=== PATIENT | male | born 1995 | race African-American/Black ===

== ENCOUNTER 2023-08-01 15:08 | Inpatient (IN) | payer SELFPAY ==
[2023-08-01 15:09] VITALS: BP 142/92; PULSE 109; RESP 22; TEMP 36.1; O2SAT 98; BMI 55.3
[2023-08-01 15:30] VITALS: PULSE 107; RESP 16; O2SAT 96
[2023-08-01 16:09] VITALS: PULSE 106; RESP 16; O2SAT 98
[2023-08-01 16:19] LABS: Absolute Lymphocyte Count 2.55 X10^3/uL (0.83-4.51); Absolute Neutrophil Count 6.1 X10^3/uL (2.0-7.7); Basophil# 0.06 X10^3/uL; Basophil% 0.6 % (0-1); Eosinophil# 0.35 X10^3/uL; Eosinophils% 3.6 % (0-5); Hematocrit 44.5 % (40-54); Hemoglobin 13.6 g/dL (13.0-16.5); Lymphocyte # 2.55 X10^3/ul (0.83-4.51); Lymphocyte % 26.1 % (19-41); Mean Corp Hgb Conc 30.6 g/dL (32-36); Mean Corpuscular Hgb 25.5 pg (27.0-32.0); Mean Corpuscular Volume 83.3 fL (80-94); Mean Platelet Vol. 10.3 fl (6.2-12.0); Monocyte# 0.67 X10^3/uL; Monocyte% 6.9 % (0-10); NRBC Flagged by Analyzer 0 % (0-5); Neutrophil # 6.11 X10^3/uL (2.7-7.7); Neutrophil % 62.5 % (47-70); Platelet Count 336 K/mm3 (150-450); RBC Distribution Width CV 16.4 % (11.6-14.6); RBC Distribution Width SD 48.7 fl (35.1-43.9); Red Blood Count 5.34 M/mm3 (4.6-6.2); White Blood Count 9.8 K/mm3 (4.4-11.0)
[2023-08-01 16:24] LABS: Amphetamine Urine VISTA NEGATIVE (<1000 ng/mL); Barbiturate Urine VISTA NEGATIVE (< 200 ng/mL); Benzodiazepine Urine VISTA NEGATIVE (< 200 ng/mL); Cocaine Urine VISTA NEGATIVE (< 300 ng/mL); Ecstacy Urine VISTA NEGATIVE (< 500 ng/mL); Methadone Urine VISTA NEGATIVE (< 300 ng/mL); PCP Urine VISTA NEGATIVE (< 25 ng/mL); THC Urine VISTA NEGATIVE (< 50 ng/mL); Vista UDS pH Range 5
--- NOTE | 2023-08-01 16:25 | EX.ED.SAOD ---
HPI History of Present Illness Chief Complaint: Substance Abuse Narrative Narrative: 27-year-old male presenting for detox. He states he drinks 2 large bottles of vodka daily. Has been doing this for about 6 months. Also admits to using cocaine. Patient states he feels shaky and jittery. Last drink was 2 AM. Patient states he does withdrawal when he tries to quit alcohol. He states he also will have a withdrawal seizure. Patient reports that he is never formally detoxed as an inpatient. PFSH PFSH Medical History no medical history Home Medications ?Medication ?Instructions ?Recorded ?Last Taken ?Type NK 08/01/23 Unknown History Allergy/AdvReac Type Severity Reaction Status Date / Time No Known Allergies Allergy Verified 08/01/23 15:09 Social History Smoking Status: Current every day smoker tobacco type: cigarettes ROS ROS ED Constitutional Constitutional ED: Denies chills, fever(s) or sweats Eyes Eyes: Denies blurry vision or change in vision ENT ENT ED: Denies ear pain or sore throat Cardiovascular Cardiovascular: Denies chest pain, palpitations or racing heartbeat Respiratory/Chest Respiratory/Chest: Denies cough, dyspnea or sputum Gastrointestinal Gastrointestinal: Denies abdominal pain, constipation, diarrhea, nausea or vomiting Genitourinary Genitourinary ED: Denies dysuria, hematuria or urinary frequency Musculoskeletal Musculoskeletal: Denies arthralgias, myalgias or neck pain Integumentary Denies abscess, Abrasions or rash Neurologic Neurologic: Denies headache(s), paresthesias or weakness Psychiatric Psychiatric: Denies anxiety, depression, suicidal ideation or suicidal thoughts Endocrine Endocrinology: Denies polydipsia or polyuria EXAM Physical Exam Const Vital Signs: 08/01/23 15:09 08/01/23 15:30 08/01/23 16:09 Temperature 97 F L Temperature Source Temporal Pulse Rate 109 H 107 H 106 H Respiratory Rate 22 H 16 16 Blood Pressure 142/92 H Blood Pressure Mean 108 Pulse Ox 98 96 98 Oxygen Delivery Method Room Air Room Air Room Air Positive well nourished General Appearance ED: NAD; Negative for pallor HEENT Reports moist mucous membranes Eyes PERRL and EOMs intact bilaterally Resp normal respiratory effort and clear to auscultation bilaterally Cardio regular rhythm Rate: tachycardic Neuro oriented x3 and CN's II-XII intact bilaterally Sensorium / Orientation: alert Motor Exam: strength 5/5 throughout Psych mental status grossly normal Skin General Skin Exam: Negative for jaundice or pallor MDM MDM MDM Narrative Medical decision making narrative: Patient presenting for alcohol detox. He has noted to be a little hypertensive and tachycardic. He states he feels shaky. He reports a history of withdrawal seizures. Screening lab work will be obtained. Patient given a nicotine patch and 2 mg of Ativan IV. CBC shows normal white blood cell count at 9.8. Hemoglobin 13.6. Platelets are normal 336. Renal function and electrolyte within normal limits. LFTs and lipase unremarkable. Urine drug screen is negative. EtOH negative. Will discuss with the hospitalist for admission. Impression: 1. EtOH abuse 2. Presentation for EtOH detox Lab Data Attestation: I reviewed the patient's lab results. Labs: Laboratory Results - last 24 hr 08/01/23 08/01/23 15:45 16:10 WBC 9.8 RBC 5.34 Hgb 13.6 Hct 44.5 MCV 83.3 MCH 25.5 L MCHC 30.6 L RDW Std Deviation 48.7 H RDW Coeff of Keila 16.4 H Plt Count 336 MPV 10.3 Immature Gran % (Auto) 0.300 Neut % (Auto) 62.5 Lymph % (Auto) 26.1 Rush % (Auto) 6.9 Eos % (Auto) 3.6 Baso % (Auto) 0.6 Absolute Neuts (auto) 6.1 Absolute Lymphs (auto) 2.55 Nucleated RBC % 0 Sodium 140 Potassium 3.7 Chloride 106 Carbon Dioxide 28.0 Anion Gap 6 BUN 15 Creatinine 1.12 Estim Creat Clear Calc 180.22 Est GFR (MDRD) Af Amer 101 Est GFR (MDRD) Non-Af 84 BUN/Creatinine Ratio 13.4 Glucose 102 Calcium 9.0 Total Bilirubin 0.20 AST 22 ALT 38 Alkaline Phosphatase 80 Total Protein 7.8 Albumin 3.4 Globulin 4.4 H Albumin/Globulin Ratio 0.8 L Lipase 27 Urine Opiates Screen NEGATIVE Urine Methadone Screen NEGATIVE Ur Barbiturates Screen NEGATIVE Ur Phencyclidine Scrn NEGATIVE Ur Amphetamines Screen NEGATIVE MDMA (Ecstasy) Screen NEGATIVE U Benzodiazepines Scrn NEGATIVE Urine Cocaine Screen NEGATIVE U Cannabinoids Screen NEGATIVE Ur Drug Screen Comment Ethyl Alcohol < 3.0 Discharge Plan Triage Chief Complaint: Substance Abuse ED Provider: Tc Garrett Dx/Rx/DC Orders Prescriptions: No Action NK Primary Care Provider: Care Physician,No Primary Referrals: Care Physician,No Primary [Primary Care Provider] - Print Language: Danish
[2023-08-01 16:32] LABS: Alcohol, Blood (Medical)-Serum < 3.0 mg/dL
[2023-08-01 16:39] LABS: ALB/GLOB Ratio 0.8 RATIO (0.9-2.4); AST(SGOT) 22 U/L (15-37); Alanine Aminotransfer ALT/SGPT 38 U/L (16-61); Albumin, Serum 3.4 g/dL (3.2-5.0); Alkaline Phosphatase 80 U/L (45-117); Anion Gap 6 (5-15); BUN 15 mg/dL (7-18); BUN/Creat Ratio 13.4 RATIO (10-20); Chloride 106 mmol/L (98-107); Creatinine, Serum 1.12 mg/dL (0.70-1.30); EST Glomerular Filtration Rate 84 mL/min (>60); Est Glom Filt Rate - Afr Amer 101 mL/min (>60); Estimated Creatinine Clearance 180.22 ml/min; Globulin 4.4 g/dL (2.2-4.2); Glucose 102 mg/dL (74-106); Lipase 27 U/L (13-75); Potassium 3.7 mmol/L (3.5-5.1); Protein, Total 7.8 g/dL (6.4-8.2); Sodium Level 140 mmol/L (136-145)
[2023-08-01] MEDS: LORazepam 2 MG/ML Syringe IV (16:40)
[2023-08-01 17:12] VITALS: BP 142/92; PULSE 106; RESP 16; TEMP 36.1; O2SAT 98
--- NOTE | 2023-08-01 17:20 | NURSING ---
MED SURG KORAM ETOH DETOX
--- NOTE | 2023-08-01 17:45 | HP.PCM.HOS_ITS ---
[facility] - General General Date of Admission: 08/01/23 Date of Service: 08/01/23 HPI Narrative TAL RM, is a 27 M with a past medical history which includes chronic alcohol abuse and cocaine dependence who presents via the ED on 08/01/2023 for acute alcohol withdrawal. Patient drinks about 2 bottles of vodka daily and his last drink was on the morning of admission. He has never gone through withdrawal before. He denies any fever or chills, palpitations, dizziness, denies any heart racing, nausea or vomiting. He also admits to cocaine use and states his last use was the day before admission. Usually snorts it. He denies any other drug use. Review of systems otherwise negative. Vitals in the ED where blood pressure 142/92, pulse rate of 106, respiratory rate of 16 and temperature of 97 Fahrenheit. He was saturating at 98% on room air. CBC was unremarkable. CMP was also unremarkable and serum alcohol level was less than 3. Urine tox was also negative. He has been admitted to manage for acute alcohol withdrawal. [facility] Medical History no medical history Home Medications ?Medication ?Instructions ?Recorded ?Last Taken ?Type NK 08/01/23 Unknown History Allergy/AdvReac Type Severity Reaction Status Date / Time No Known Allergies Allergy Verified 08/01/23 15:09 Social History Smoking Status: Current every day smoker tobacco type: cigarettes ROS Constitutional Constitutional: Denies anorexia, chills, fatigue, fever(s), malaise or weakness Eyes Eyes: Denies change in vision ENT HEENT: Denies dysphagia or headache(s) Cardiovascular Cardiovascular: Denies chest pain, dyspnea on exertion, edema, orthopnea, palpitations, paroxysmal nocturnal dyspnea, rapid heart rate or syncope Respiratory/Chest Respiratory/Chest: Denies cough, dyspnea, shortness of breath at rest or shortness of breath with exertion Gastrointestinal Gastrointestinal: Denies abdominal pain, diarrhea, dyspepsia, nausea or vomiting Genitourinary Genitourinary: Denies burning urination Musculoskeletal Musculoskeletal: Denies arthralgias Neurologic Neurologic: Denies confusion, dizziness, focal weakness, headache(s), numbness, seizure-like activity, seizures or syncope Psychiatric Psychiatric: Denies anxiety or depression Vital Signs Vital Signs Vital Signs: 08/01/23 15:09 08/01/23 15:30 08/01/23 16:09 Temperature 97 F L Temperature Source Temporal Pulse Rate 109 H 107 H 106 H Respiratory Rate 22 H 16 16 Blood Pressure 142/92 H Blood Pressure Mean 108 Pulse Ox 98 96 98 Oxygen Delivery Method Room Air Room Air Room Air 08/01/23 17:12 Temperature 97 F L Temperature Source Pulse Rate 106 H Respiratory Rate 16 Blood Pressure 142/92 H Blood Pressure Mean 108 Pulse Ox 98 Oxygen Delivery Method Weight Weight: 430 lb 12.532 oz Body Mass Index (BMI) 55.3 Physical Exam Const alert, oriented x3 and no apparent distress Constitutional Narrative: Super morbid obesity HEENT normocephalic, head/scalp atraumatic, hearing grossly normal bilaterally, moist oral mucous membranes and oropharynx normal Mouth: oral and palatal mucosa normal Eyes PERRL, EOMs intact bilaterally and conjunctivae normal Neck no lymphadenopathy and supple Resp normal respiratory effort, no retractions, no use of accessory muscles and clear to auscultation bilaterally Cardio regular rate, regular rhythm, S1 normal heart sound, S2 normal heart sound and no murmurs GI normal to inspection, nondistended, normoactive bowel sounds, soft to palpation, non-tender and non-distended Extremity normal to inspection, full ROM and no clubbing, cyanosis or edema Neuro oriented x3, CN's II-XII intact bilaterally, moves all extremities and no focal motor deficits Motor Exam: strength 5/5 throughout Psych affect normal Results Lab / Micro Data 08/01/23 16:10 08/01/23 16:10 Labs: Laboratory Results - last 24 hr 08/01/23 15:45: Urine Opiates Screen NEGATIVE, Urine Methadone Screen NEGATIVE, Ur Barbiturates Screen NEGATIVE, Ur Phencyclidine Scrn NEGATIVE, Ur Amphetamines Screen NEGATIVE, MDMA (Ecstasy) Screen NEGATIVE, U Benzodiazepines Scrn NEGATIVE, Urine Cocaine Screen NEGATIVE, U Cannabinoids Screen NEGATIVE, Ur Drug Screen Comment 08/01/23 16:10: WBC 9.8, RBC 5.34, Hgb 13.6, Hct 44.5, MCV 83.3, MCH 25.5 L, M CHC 30.6 L, RDW Std Deviation 48.7 H, RDW Coeff of Keila 16.4 H, Plt Count 336, MPV 10.3, Immature Gran % (Auto) 0.300, Neut % (Auto) 62.5, Lymph % (Auto) 26.1, [place] % (Auto) 6.9, Eos % (Auto) 3.6, Baso % (Auto) 0.6, Absolute Neuts (auto) 6.1, Absolute Lymphs (auto) 2.55, Nucleated RBC % 0, Sodium 140, Potassium 3.7, Chloride 106, Carbon Dioxide 28.0, Anion Gap 6, BUN 15, Creatinine 1.12, Estim Creat Clear Calc 180.22, Est GFR (MDRD) Af Amer 101, Est GFR (MDRD) Non-Af 84, BUN/Creatinine Ratio 13.4, Glucose 102, Calcium 9.0, Total Bilirubin 0.20, AST 22, ALT 38, Alkaline Phosphatase 80, Total Protein 7.8, Albumin 3.4, Globulin 4.4 H, Albumin/Globulin Ratio 0.8 L, Lipase 27, Ethyl Alcohol < 3.0 Assessment & Plan Assessment/Plan (1) Alcohol withdrawal: PLAN: Plan #Acute alcohol withdrawal * Ad[facility] to [facility]. Patient drinks about 2 bottles of vodka daily and his last drink was the morning of admission * Serum alcohol level is less than 3. Started on alcohol withdrawal protocol with phenobarbital. * . Thiamine, p.o. folic acid and p.o. Multi-Katie. * Adjunctive meds for symptomatic relief. * Monitor CIWA score * #Nicotine dependence: Counseled to quit. Nicotine patch 21 mg daily. #Elevated blood pressure: * Blood pressure was 142/92. * Patient states he does have a history of high blood pressure but does not take any medication for it. * Will monitor blood pressure and if remains elevated,will start PO meds. * #Cocaine abuse: patient admits to using cocaine. Urine tox is negative. Counseled to quit. DVT prophylaxis: low risk, encourage to ambulate. Charges/Coding Visit Charges Inpatient E&M: 70793 Init Hosp L3
[2023-08-01 18:48] VITALS: BMI 56.1
[2023-08-01 20:03] VITALS: BP 138/91; PULSE 92; RESP 18; TEMP 36.6; O2SAT 95
[2023-08-01] MEDS: Phenobarbital 32.4 MG Tablet 64.8 MG PO (20:20)
[2023-08-01] MEDS: Acetaminophen 325 MG Tablet 650 MG PO (20:26)
[2023-08-02] VITALS (7 sets, daily range): BP systolic 142–170; BP diastolic 59–91; PULSE 85–98; RESP 16–18; TEMP 36.2–36.9; O2SAT 97–99
[2023-08-02] MEDS: Phenobarbital 32.4 MG Tablet 64.8 MG PO ×6 (00:17→20:17)
--- NOTE | 2023-08-02 08:58 | PN.HOSP_ITS ---
Subjective Subjective No issues overnight, CIWA score 3 Objective Data Objective Data Vital Signs: Vital Signs Temp Pulse Resp BP Pulse Ox O2 Del Method 98.1 F 86 16 146/60 H 97 Room Air 08/02/23 04:00 08/02/23 04:00 08/02/23 04:00 08/02/23 04:00 08/02/23 04:00 08/02/23 04:00 Oxygen Delivery Method Room Air Weight: 425 lb 8 oz Body Mass Index (BMI) 56.1 Lab / Micro Data 08/01/23 16:10 08/01/23 16:10 Labs: Laboratory Results - last 24 hr 08/01/23 15:45: Urine Opiates Screen NEGATIVE, Urine Methadone Screen NEGATIVE, Ur Barbiturates Screen NEGATIVE, Ur Phencyclidine Scrn NEGATIVE, Ur Amphetamines Screen NEGATIVE, MDMA (Ecstasy) Screen NEGATIVE, U Benzodiazepines Scrn NEGATIVE, Urine Cocaine Screen NEGATIVE, U Cannabinoids Screen NEGATIVE, Ur Drug Screen Comment 08/01/23 16:10: WBC 9.8, RBC 5.34, Hgb 13.6, Hct 44.5, MCV 83.3, MCH 25.5 L, M CHC 30.6 L, RDW Std Deviation 48.7 H, RDW Coeff of Keila 16.4 H, Plt Count 336, MPV 10.3, Immature Gran % (Auto) 0.300, Neut % (Auto) 62.5, Lymph % (Auto) 26.1, [place] % (Auto) 6.9, Eos % (Auto) 3.6, Baso % (Auto) 0.6, Absolute Neuts (auto) 6.1, Absolute Lymphs (auto) 2.55, Nucleated RBC % 0, Sodium 140, Potassium 3.7, Chloride 106, Carbon Dioxide 28.0, Anion Gap 6, BUN 15, Creatinine 1.12, Estim Creat Clear Calc 180.22, Est GFR (MDRD) Af Amer 101, Est GFR (MDRD) Non-Af 84, BUN/Creatinine Ratio 13.4, Glucose 102, Calcium 9.0, Total Bilirubin 0.20, AST 22, ALT 38, Alkaline Phosphatase 80, Total Protein 7.8, Albumin 3.4, Globulin 4.4 H, Albumin/Globulin Ratio 0.8 L, Lipase 27, Ethyl Alcohol < 3.0 Physical Exam Narrative General: Alert, Oriented x3, Cooperative, No apparent distress, morbidly obese HEENT: Atraumatic, PERRLA, EOMI, Normocephalic Oral: Moist Mucosa Neck: Supple, No JVD Lungs: Clear to auscultation, Normal air movement, No rhonchi, No wheeze, No rales Cardiovascular: Regular rate, Regular Rhythm, Normal S1, Normal S2, No murmurs Abdomen: Soft, Non Tender, Non-Distended, No Hepato-splenomegaly Extremities: No edema, Capillary Refill Less than 3 Seconds Skin: No rashes, No breakdown Musculoskeletal: No Tenderness to Palpation of Joints or Extremities Neurological: No focal neurological deficits, Motor Exam 5/5 strength throughout, Sensory exam intact to light touch and pain Psych/Mental Status: Normal Affect, Appropriate Assessment & Plan Assessment/Plan (1) Alcohol withdrawal: PLAN: Plan 1. Acute alcohol withdrawal/tobacco abuse ? Continue with the alcohol withdrawal protocol ? Will have him follow-up with 180 to develop an outpatient plan ? Discussed tobacco cessation continue with the nicotine patch ? Does endorse cocaine use so his test came back negative, he was counseled to quit by the admitting physician DVT: Ambulation Charges/Coding Visit Charges Inpatient E&M: 88872 Subs Hosp L2
[2023-08-02] MEDS: Thiamine Hydrochloride 100 MG Tablet PO (09:54)
[2023-08-02] MEDS: Folic Acid 1 MG Tablet PO (09:54)
--- NOTE | 2023-08-02 12:34 | NURSING ---
Pt wanted this nurse to call his mother Kym [phone] and ask if she has heard from the job and there are papers in the car. Mother answer the phone I communicated what the patient wanted.
--- NOTE | 2023-08-02 12:45 | NURSING ---
I was told by Curly that patient had old blood on his blanket and table. I told her when i was in the room earlier I did not see blood anywhere. I went into the room and assess the patient from head to toe. Removed blankets did not see any thing in the blanket just old blood. Did not see any blood on the body or mouth. Patient did have a IV in LAC that was no longer there and the nicotine patch stuck on the blanket.
--- NOTE | 2023-08-02 14:23 | CHAPLAIN ---
Type of Pastoral Visit _x__ Initial Visit ___ Follow-up Visit ___ On-call Visit ___ General Patient Visit ___ Spiritual Assessment ___ Family Conference ___ Bereavement ___ Rapid Response ___ Code Blue ___ Other (describe below) Pastoral Care Referral From _x__ Patient ___ Family ___ Nurse ___ Physician ___ Chicken Raiser ___ Hand Paster ___ Other (describe below) Sacrament/Intervention ___ Active listening ___ Anointing ___ Rastafarian ___ Bereavement ___ Communion ___ Janiya exploration ___ ___ Life review ___ Prayer ___ Reconciliation ___ Sacrament of Sick _x__ Supportive presence ___ Wedding ___ Other (describe below) Pastoral Comments waited as patient was on the phone; when pt completed call he denied any needs, saying that he was fine and doing okay; pt asked this clinic physician director to tell nurse to come into room; RN was on her way into room to take the phone already; pt again says that he does not need anything
--- NOTE | 2023-08-02 14:54 | CASEMGMT ---
Social Work- completed SDOH and provided resources for housing, people to people, community action, transportation, and WHIRE card. Pt has medicaid application started. Pt has planned d/c to residential treatment for BERNARDO. Pt states that he moved to [place] 2 weeks ago from [facility]. Pt states that his parents moved here in February from [place] for a job and live in housing that does not allow people with a felony conviction to reside there. Pt states that he has a felonious assault charge on his record. Pt states that his relationship with his parents is loving and healthy. Pt states that he speaks with them regularly. Pt states that he has two jobs; one at [employer] and one at [employer]. Pt states that he gets 50% off food there and also utilizes taoist meals. Pt states that he sleeps behind a taoist and finds it difficult to actually sleep due to being worried about police and other homeless people. Pt states that he walks everywhere. Pt states that he has money for a $450-$500/month one bedroom apartment and just needs help finding housing. Pt states that he wants to make a change with his substance use and housing situation. Pt was appreciative of resources and engaged freely in conversation, sitting up in bed and making good eye contact. Pt was pleasant and cooperative in demeanor. HAYDE Pérez
--- NOTE | 2023-08-02 18:04 | NURSING ---
Pt wanted nurse to update mother on his plans of going [facility]. He wanted me to let her know that he would be gone for 30 days and it one and half hours away from here, and if she thought it was a good ideal for him to go. I told mother and she stated he will be okay only 30 days and tell him to give me a call when he gets there.
[2023-08-02] MEDS: Ondansetron 8 MG Tablet PO (20:17)
[2023-08-02] MEDS: Gabapentin 300 MG Capsule PO (20:18)
[2023-08-02] MEDS: Acetaminophen 325 MG Tablet 650 MG PO (20:18)
[2023-08-03] MEDS: Phenobarbital 32.4 MG Tablet 64.8 MG PO ×4 (00:24→11:41)
[2023-08-03 04:00] VITALS: BP 123/65; PULSE 83; RESP 18; TEMP 36.4; O2SAT 98
[2023-08-03] MEDS: Ondansetron 8 MG Tablet PO ×2 (04:06→12:03)
[2023-08-03] MEDS: Acetaminophen 325 MG Tablet 650 MG PO ×2 (04:06→10:59)
[2023-08-03 07:44] VITALS: BP 117/73; PULSE 76; RESP 20; TEMP 36.6; O2SAT 98
[2023-08-03] MEDS: Thiamine Hydrochloride 100 MG Tablet PO (07:48)
[2023-08-03] MEDS: Folic Acid 1 MG Tablet PO (07:48)
--- NOTE | 2023-08-03 09:32 | PCM.PN.HOSP ---
Subjective Subjective No issues overnight, CIWA score 6 Objective Data Objective Data Vital Signs: Vital Signs Temp Pulse Resp BP Pulse Ox O2 Del Method 97.9 F 76 20 H 117/73 98 Room Air 08/03/23 07:44 08/03/23 07:44 08/03/23 07:44 08/03/23 07:44 08/03/23 07:44 08/03/23 07:44 Oxygen Delivery Method Room Air Weight: 425 lb 8 oz Body Mass Index (BMI) 56.1 Intake & Output: Intake and Output for Last 24 Hours 08/02/23 08/03/23 08/04/23 03:59 03:59 03:59 Intake Total 1880 / 1880 500 / 500 Balance 1880 / 1880 500 / 500 Lab / Micro Data 08/01/23 16:10 08/01/23 16:10 Physical Exam Narrative General: Alert, Oriented x3, Cooperative, No apparent distress, morbidly obese HEENT: Atraumatic, PERRLA, EOMI, Normocephalic Oral: Moist Mucosa Neck: Supple, No JVD Lungs: Clear to auscultation, Normal air movement, No rhonchi, No wheeze, No rales Cardiovascular: Regular rate, Regular Rhythm, Normal S1, Normal S2, No murmurs Abdomen: Soft, Non Tender, Non-Distended, No Hepato-splenomegaly Extremities: No edema, Capillary Refill Less than 3 Seconds Skin: No rashes, No breakdown Musculoskeletal: No Tenderness to Palpation of Joints or Extremities Neurological: No focal neurological deficits, Motor Exam 5/5 strength throughout, Sensory exam intact to light touch and pain Psych/Mental Status: Normal Affect, Appropriate Assessment & Plan Assessment/Plan (1) Alcohol withdrawal: PLAN: Plan 1. Acute alcohol withdrawal/tobacco abuse ? Continue with the alcohol withdrawal protocol ?Plan to discharge for residential treatment to ? Discussed tobacco cessation continue with the nicotine patch ? Does endorse cocaine use so his test came back negative, he was counseled to quit by the admitting physician DVT: Ambulation Charges/Coding Visit Charges Inpatient E&M: 27674 Subs Hosp L2
--- NOTE | 2023-08-03 09:50 | CASEMGMT ---
Social Work As per RN and LYNDA notes, pt going to [facility] today, and is to be picked up. SW called [facility] [employer], spoke w/Angélica who is covering today. She states pt is to go to [facility] today, does not know what time. She will be here later this morning and can follow up, but did give SW the phone number. SW spoke w/pt, he confirms he is to go to [facility] but does not know a time. LYNDA called [facility](([phone]), left a message. LYNDA updated rn charge, and will speak w/Angélica when she is here. MATTY Villareal
[2023-08-03 10:48] VITALS: PULSE 100
[2023-08-03] MEDS: Dicyclomine 10 MG Capsule 20 MG PO (11:00)
--- NOTE | 2023-08-03 11:01 | NURSING ---
rated headache and low abd pain at 8/10 and stated threw up about 1 hour ago. He requested cookies and is eating cookies now.
--- NOTE | 2023-08-03 11:32 | ADDICTION ---
ASAM, MSE, AUDIT, DUDIT assessments completed and placed in pt's chart. PT plans to f/u with [facility] and transportation will be provided 08/03/23 at 12PM.
--- NOTE | 2023-08-03 11:33 | DCINST_ITS ---
Discharge Instructions Diet Discharge Diet: Low fat / Low cholesterol Activity Discharge Activity: Return to Normal Activity Dressing / Incision Call your doctor if you observe: Fever of 101 or Higher, Shortness of breath, Dizziness, Fainting spells, Swelling in the ankles, Chest pain and Increased palpitations (irregular heartbeat) Follow Up Care Test Results: Test results from this visit will be discussed in further detail at your follow- up appointment, if applicable. Discharge Plan Admission Admit Date/Time: 08/01/23 17:54 Attending Provider: Daniel Richards Primary Care Provider: Care Physician,Windy Primary Consulting Providers: Nathaly Luo Discharge Orders/Prescriptions Prescriptions: New amlodipine [Norvasc] 5 mg tablet 5 mg PO DAILY Qty: 30 0RF Referrals / Follow Up: Care Physician,No Primary [Primary Care Provider] - Disposition Disposition (needs filled in before D/C Order can be placed): Inpatient Rehab Unit/Facility
[2023-08-03 13:08] VITALS: BP 157/72; PULSE 87; RESP 18; TEMP 36.5; O2SAT 95
--- NOTE | 2023-08-03 14:38 | DS.PCM_ITS ---
Providers Date of Admission: 08/01/23 Primary Care Physician: No Primary Care Phys Reason For Visit: ETOH DETOX Diagnosis Discharge Diagnosis (1) Alcohol withdrawal: Status: Acute Code(s): F10.939 - Alcohol use, unspecified with withdrawal, unspecified Plan 1. Acute alcohol withdrawal/tobacco abuse ? Continue with the alcohol withdrawal protocol ?Plan to discharge [facility] residential [facility] ? Discussed tobacco cessation continue with the nicotine patch ? Does endorse cocaine use so his test came back negative, he was counseled to quit by the admitting physician DVT: Ambulation Medications at Discharge Home Medications amlodipine 5 mg tablet (Norvasc) 5 mg PO DAILY #30 tabs 08/03/23 Hospital Course Operations None Procedures None Summary of Care Provided Minutes Spent on Discharge: 35 Hospital Course: Per HPI: TAL RM, is a 27 M with a past medical history which includes chronic alcohol abuse and cocaine dependence who presents via the ED on 08/01/2023 for acute alcohol withdrawal. Patient drinks about 2 bottles of vodka daily and his last drink was on the morning of admission. He has never gone through withdrawal before. He denies any fever or chills, palpitations, dizziness, denies any heart racing, nausea or vomiting. He also admits to cocaine use and states his last use was the day before admission. Usually snorts it. He denies any other drug use. Review of systems otherwise negative. Vitals in the ED where blood pressure 142/92, pulse rate of 106, respiratory rate of 16 and temperature of 97 Fahrenheit. He was saturating at 98% on room air. CBC was unremarkable. CMP was also unremarkable and serum alcohol level was less than 3. Urine tox was also negative. He has been admitted to manage for acute alcohol withdrawal. Hospital Course: 1. Alcohol withdrawal?27-year-old male presents to the hospital requesting detox from alcohol. He does also use cocaine though urine drug screen came back negative. Says he drinks about 2 bottles of vodka daily and his last drink was on the morning of admission 08/01/2023. This morning on evaluation, he was sleeping comfortably without any issues and then when I was notified that [facility] was planning on picking him up today he was reevaluated. At that time he said that he was a little bit dizzy as he had just woken up. He denied any other symptomatology at that time and then I was notified that he was having abdominal pain but also wanted to eat. He did not have any tenderness to palpation of his abdomen. I discussed with him the plan for discharge to [facility] and he expressed understanding of the risk benefits of going for rehab. I also discussed the case with the [employer] front office representative who is here in the hospital who also felt it best to get him to [facility] for residential treatment, especially since they are able to continue his detox protocol in their facility. Because his blood pressures were remaining a little bit elevated he was started on Norvasc 5 mg p.o. daily that he can continue at residential treatment. Physical Exam Narrative General: Alert, Oriented x3, Cooperative, No apparent distress, morbidly obese HEENT: Atraumatic, PERRLA, EOMI, Normocephalic Oral: Moist Mucosa Neck: Supple, No JVD Lungs: Clear to auscultation, Normal air movement, No rhonchi, No wheeze, No rales Cardiovascular: Regular rate, Regular Rhythm, Normal S1, Normal S2, No murmurs Abdomen: Soft, Non Tender, Non-Distended, No Hepato-splenomegaly Extremities: No edema, Capillary Refill Less than 3 Seconds Skin: No rashes, No breakdown Musculoskeletal: No Tenderness to Palpation of Joints or Extremities Neurological: No focal neurological deficits, Motor Exam 5/5 strength throughout, Sensory exam intact to light touch and pain Psych/Mental Status: Normal Affect, Appropriate Weight / BMI Weight Weight: 425 lb 8 oz Body Mass Index (BMI) 56.1 ABG / Lab / Microbiology Data 08/01/23 16:10 08/01/23 16:10 D/C Instructions Discharge Diet: Low fat / Low cholesterol Call your doctor if you observe: Fever of 101 or Higher, Shortness of breath, Dizziness, Fainting spells, Swelling in the ankles, Chest pain and Increased palpitations (irregular heartbeat) Meaningful Use Info Meaningful Use Meaningful Use Diagnoses (Choose all that apply): None applicable Ischemic Stroke Statin Dosing Therapy Reference: STATIN DOSE THERAPY REFERENCE: * Patients > 75 years receive moderate or high dose statin therapy. * Patients 75 years or YOUNGER should receive HIGH intensity statin dose unless contraindicated. You will be required to document reason for non-treatment if statin daily dose does not meet guidelines. HIGH DOSE STATIN THERAPY DAILY Atorvastatin > than or = to 40 mg Rosuvastatin > than or = to 20 mg Amlodipine + Atorvastatin > than or = to 2.5/40 mg Ezetimibe + Simvastatin 10/80 mg Simvastatin 80mg Discharge Plan Admission Admit Date/Time: 08/01/23 17:54 Attending Provider: Daniel Richards Primary Care Provider: Care Physician,No Primary Consulting Providers: Nathaly Luo Discharge Orders/Prescriptions Prescriptions: New amlodipine [Norvasc] 5 mg tablet 5 mg PO DAILY Qty: 30 0RF Referrals / Follow Up: Care Physician,No Primary [Primary Care Provider] - Disposition Disposition (needs filled in before D/C Order can be placed): Home, Self Care Charges/Coding Visit Charges Inpatient E&M: 08042 Disch Hosp >30min
== END 2023-08-03 14:09 | disposition home or self-care (01) | DRG 897 ==
LOC: ED 16:19 → MS3 18:42
PROVIDERS: Admitting Provider Student in an Organized Health Care Education/Training Program; Emergency Provider Student in an Organized Health Care Education/Training Program; Visit Provider Family Medicine
DX: F10.139 Alcohol abuse with withdrawal, unspecified (principal); Z68.43 Body mass index [BMI] 50.0-59.9, adult; F14.10 Cocaine abuse, uncomplicated; E66.01 Morbid (severe) obesity due to excess calories; F17.210 Nicotine dependence, cigarettes, uncomplicated; Y90.0 Blood alcohol level of less than 20 mg/100 ml; R03.0 Elevated blood-pressure reading, without diagnosis of hypertension
CPT/HCPCS: 80048; 80053; 80307; 80320; 83690; 85025; 99284; A4216; G0480